=== PATIENT | male | born 1940 | race Caucasian/White ===

== ENCOUNTER 2016-06-10 16:59 | Emergency (ER) | payer MEDICARE ==
[~2016-06-10] VITALS: Ht 180.3 cm; Wt 115.8 kg
[~2016-06-10 16:59] MED LIST: ASCO500C15 PO; ASPI-557 PO; CALC-348 PO; CHOL10003 PO; HYDR-4246 PO; LOSA50TA52 PO; LUTE20CA3 PO; OSTEO-BIFLEX; VITA100C20 PO
--- OUTSIDE RECORDS SUMMARY | 2016-06-10 17:03 | XMS REPORT | Continuity of Care Document ---
Author Author [facility] Organization [facility] Address Unknown Phone Unavailable Allergies Medications Problems Procedures Code Description Performed By Performed On 13.59 EXTRACAP LENS EXTRAC [place] Felipe MD 03/26/2013 14.74 MECH VITRECTOMY [place] Felipe MD 03/26/2013 Results Test Result Range HEMOGLOBIN - 03/22/13 13:59 MEAN CELL VOLUME 89.1 fl 80.0-100.0 HEMOGLOBIN 15.9 gm/dL 14.0-18.0 METABOLIC PANEL, BASIC - 03/22/13 13:59 POTASSIUM 4.2 mmol/L 3.5-5.3 EST GFR (MDRD) > 60 mL/min > 59 ANION GAP 7 mmol/L 5-15 GLUCOSE 92 mg/dL 70-99 CALCIUM 9.1 mg/dL 8.5-10.1 BLOOD UREA NITROGEN 16 mg/dL 7-20 CREATININE 0.7 mg/dL 0.8-1.3 SODIUM 141 mmol/L 135-148 CHLORIDE 109 mmol/L 98-110 CARBON DIOXIDE 25 mmol/L 21-32 Encounters ACCT No. Visit Date/Time Discharge Status Pt. Type Provider Facility Loc./Unit Complaint [id number] 03/26/2013 05:23:00 2013 09:44:00 DIS Outpatient [place] Rios MD [facility] W.OPRA [id number] 03/22/2013 13:16:00 2013 13:16:00 DIS Outpatient [place] Rios MD [facility] DoriPOA
--- OUTSIDE RECORDS SUMMARY | 2016-06-10 17:04 | XMS REPORT | Referral Summary ---
Author Author [facility] Organization [facility] Address Unknown Phone Unavailable Encounter [facility] [id number] Date(s): 12/20/14 - 12/20/14 [facility] [address] [place] [address] GILES Schmidt [id number] Discharge Disposition: 01-Home or Self Care Attending Physician: Bartolome Gray MD Admitting Physician: Bartolome Gray MD Vital Signs No data available for this section Problem List No data available for this section Allergies, Adverse Reactions, Alerts No data available for this section Medications No data available for this section Results No data available for this section Immunizations No data available for this section Procedures No data available for this section Social History No data available for this section Assessment and Plan No data available for this section
--- OUTSIDE RECORDS SUMMARY | 2016-06-10 17:04 | XMS REPORT | Continuity of Care Document ---
Author Author [facility] Organization [facility] Address Unknown Phone Unavailable Support Name Relationship Address Phone JUAN WIN MD Caregiver [address] [facility] [address] DARNELL GARCÍA MD Caregiver [address] [facility] [place] [phone] NOMI GOODSON Next Of Kin [address] [place] [address] * Insurance Providers Payer Name Policy Number Subscriber Name Relationship Medicareadvantra Ppo [id number] Rodney Goodson 17 Self Advance Directives Directive Response Recorded Date/Time Advanced Directives Type None 05/31/14 9:30am Problems Medical Problems Problem Onset Date Status TIA (transient ischemic attack) Unknown Active TIA (transient ischemic attack) Unknown Active Medications Medication Dose Route Sig Days/Qty Instructions Order Date Discontinued Date Status Esomeprazole Mag Trihydrate 08/19/08 07/01/10 Discontinued Ascorbic Acid 500 Mg PO DAILY 07/01/10 Active Calcium/Magnesium/Zinc 1 Tab PO DAILY 07/01/10 Active Lutein 20 Mg PO DAILY 07/01/10 Active [Osteo-Biflex] 1 DAILY 07/01/10 Active Vitamin E 100 Unit PO DAILY 07/01/10 Active Cholecalciferol 1,000 Unit PO DAILY 07/01/10 Active Losartan Potassium 50 Mg PO DAILY 05/31/14 Active Aspirin 325 Mg PO 05/31/14 Active Social History Social History Problem Response Recorded Date/Time Hx Substance Use No 05/31/2014 9:44am Hx Alcohol Use No 05/31/2014 9:44am Query Response Start Date Stop Date Smoking Status Former smoker Hospital Discharge Instructions No hospital discharge instructions. Plan of Care No plan of care. Functional Status Query Response Date Recorded Physical Hygiene Self May 31, 2014 9:44am Disabilities None May 31, 2014 9:44am Devices Used None May 31, 2014 9:44am Dressing Self May 31, 2014 9:44am Ambulation Self May 31, 2014 9:44am Diet Self May 31, 2014 9:44am Mental Status Alert Oriented May 31, 2014 11:48am Disabilities None May 31, 2014 9:44am Devices Used None May 31, 2014 9:44am Physical Hygiene Self May 31, 2014 9:44am Dressing Self May 31, 2014 9:44am Ambulation Self May 31, 2014 9:44am Diet Self May 31, 2014 9:44am Allergies, Adverse Reactions, Alerts Allergen Type Severity Reaction Status Last Updated Sulfa (Sulfonamide Antibiotics) Allergy Active 06/24/10 Immunizations Name Given Type Hx Influenza Vaccination Yes Historical Hx Pneumococcal Vaccination Yes Historical Hx Tetanus, Diptheria, Pertussis Y 2006 ? Historical Hx Influenza Vaccination Yes Historical Hx Tetanus, Diptheria, Pertussis Y 2005 ? Historical Vital Signs Acute Vital Signs Vital Response Date/Time Temperature (Fahrenheit) 97.0 deg F (96.8 - 99.1) Temperature (Calculated Celsius) 36.17184 degrees C (36.0 - 37.3) Pulse Rate (adult) 79 bpm (60 - 100) Respiratory Rate 16 breaths/min (10 - 20) O2 Sat by Pulse Oximetry 96 % (90 - 100) Blood Pressure 122/85 mm Hg Height 6 ft 0 in Weight 269 lb Body Mass Index 36.0 kg/m^2 Results Test Source Date Result Interp. Ref. Range Comments Activated Partial Thromboplast Time August 19, 2008 1:55pm 28.8 SEC N 25- 36 Alanine Aminotransferase (ALT/SGPT) August 19, 2008 1:55pm 21 U/L N 21-72 Albumin August 19, 2008 1:55pm 4.30 G/DL N 3.5-5.0 Albumin/Globulin Ratio August 19, 2008 1:55pm 1.5 RATIO N 1.1-2.2 Alkaline Phosphatase August 19, 2008 1:55pm 92 U/L N 38-126 Amylase Level August 19, 2008 1:55pm 58 U/L N 30-110 Anion Gap September 14, 2013 10:49am 10 MEQ/L N 5-15 Aspartate Amino Transf (AST/SGOT) August 19, 2008 1:55pm 26 U/L N 17-59 B-Type Natriuretic Peptide August 19, 2008 1:55pm 49 PG/ML N 15-100 BUN/Creatinine Ratio September 14, 2013 10:49am 31 RATIO H 6-26 Basophils # (Auto) September 14, 2013 10:49am 0.1 T/MM3 N 0-0.2 Basophils (%) (Auto) September 14, 2013 10:49am 0.9 % N 0-2 Blood Urea Nitrogen September 14, 2013 10:49am 22.0 MG/DL H 9-20 Calcium Level September 14, 2013 10:49am 9.0 MG/DL N 8.4-10.2 Calculated Osmolality September 14, 2013 10:49am 271 MOSM/KG N 261-280 Carbon Dioxide Level September 14, 2013 10:49am 24 MEQ/L N 22-30 Chloride Level September 14, 2013 10:49am 106 MEQ/L N 98-107 Conjugated Bilirubin August 19, 2008 1:55pm 0.00 MG/DL N 0.00-0.30 Creatinine September 14, 2013 10:49am 0.7 MG/DL L 0.8-1.5 D-Dimer September 14, 2013 10:49am 345 NG/ML H 0-230 <224 NG/ML=PRESUMPTIVE NEGATIVE FOR PE OR DVT>224 NG/ML=ADDITIONAL EVALUATION FOR PE OR DVT RECOMMENDED Eosinophils # (Auto) September 14, 2013 10:49am 0.2 T/MM3 N 0-0.5 Eosinophils (%) (Auto) September 14, 2013 10:49am 3.1 % N 0-4 Erythrocyte Sedimentation Rate August 19, 2008 1:55pm 5 MM/HR - Globulin August 19, 2008 1:55pm 2.8 G/DL N 2.4-3.6 Glucose Level September 14, 2013 10:49am 80 MG/DL N 75-110 Hematocrit September 14, 2013 10:49am 47.8 % N 41-53 Hemoglobin September 14, 2013 10:49am 15.8 GM/DL N 13.5-17.5 Lipase August 19, 2008 1:55pm 106 U/L N 23-300 Lymphocytes # (Auto) September 14, 2013 10:49am 1.2 T/MM3 N 1-4.8 Lymphocytes (%) (Auto) September 14, 2013 10:49am 16.5 % L 23-45 Mean Corpuscular Hemoglobin September 14, 2013 10:49am 29.5 UUG N 26-34 Mean Corpuscular Hemoglobin Concent September 14, 2013 10:49am 33.1 GM/DL N 31-37 Mean Corpuscular Volume September 14, 2013 10:49am 89.2 UM3 N 80-100 Mean Platelet Volume September 14, 2013 10:49am 10.2 UM3 N 9.4-12.4 Monocytes # (Auto) September 14, 2013 10:49am 0.9 T/MM3 H 0-0.8 Monocytes (%) (Auto) September 14, 2013 10:49am 11.8 % H 0-9.0 Neutrophils # (Auto) September 14, 2013 10:49am 5.0 T/MM3 N 1.8-7.7 Neutrophils (%) (Auto) September 14, 2013 10:49am 67.7 % H 33-66 Platelet Count September 14, 2013 10:49am 175 T/MM3 N 130-400 Potassium Level September 14, 2013 10:49am 4.2 MEQ/L N 3.6-5 Prothromb Time International Ratio August 19, 2008 1:55pm 0.95 N 0.79- 1.23 THERAPUTIC RANGE=2.00-3.00 FOR ANTI-THROMBOSIS THERAPUTIC RANGE=2.50- 3.50 FOR IMPLANTED VALVE RDW Standard Deviation September 14, 2013 10:49am 43.9 FL N 36.9-50.2 Red Blood Count September 14, 2013 10:49am 5.36 M/MM3 N 4.50-5.90 Sodium Level September 14, 2013 10:49am 140 MEQ/L N 134-144 Thyroid Stimulating Hormone (TSH) August 19, 2008 1:55pm 1.00 MIU/ML N 0.47-4.68 Thyroxine (T4) August 19, 2008 1:55pm 5.8 UG/DL N 5.5-11 Total Bilirubin August 19, 2008 1:55pm 0.42 MG/DL N 0.20-1.30 Total Protein August 19, 2008 1:55pm 7.1 G/DL N 6.3-8.2 Troponin I September 14, 2013 10:49am < 0.012 ng/ml 0-0.12 Unconjugated Bilirubin August 19, 2008 1:55pm 0.37 MG/DL N 0.00-1.10 Urine Bilirubin January 29, 2010 11:15am Negative - Urine Blood January 29, 2010 11:15am Negative - Urine Collection Type January 29, 2010 11:15am Voided - Urine Color January 29, 2010 11:15am Yellow - Urine Glucose (UA) January 29, 2010 11:15am Negative - Urine Ketones January 29, 2010 11:15am Negative - Urine Leukocyte Esterase January 29, 2010 11:15am Negative - Urine Nitrite January 29, 2010 11:15am Negative - Urine Protein January 29, 2010 11:15am Negative - Urine Specific [place] January 29, 2010 11:15am 1.015 - Urine Turbidity January 29, 2010 11:15am Clear - Urine Urobilinogen January 29, 2010 11:15am Normal EU/DL - Urine pH January 29, 2010 11:15am 5.0 - White Blood Count September 14, 2013 10:49am 7.4 T/MM3 N 4.5-11.0 Chemistry Specimen Hemolysis September 14, 2013 10:49am < 15 0-25 0-25: No Hemolysis.26-70: Slight Hemolysis - can falsely elevate K and Urine Protein. 71-285: Moderate Hemolysis - can falsely elevate K, Troponin I, CA 19-9, PTH, CSF GLucose, and Urine Protein, and can falsely decrease Phenytoin. 286-999: Gross Hemolysis - can falsely elevate K, Troponin I, CA 19-9, PTH, CSF Glucose, and Urine Protine, and can falsely decrease Phenytoin. Recommend specimen recollection. Lab Scanned Report September 14, 2013 11:43am LAB TEST FORM REQUEST [id number] - EKG August 19, 2008 1:39pm Complete - Turbidity September 14, 2013 10:49am < 20 0-20 Glomerular Filtration Rate Calc September 14, 2013 10:49am 110 - Immature Granulocyte # (Auto) September 14, 2013 10:49am 0.00 T/MM3 N 0.00- 0.03 Immature Granulocyte % (Auto) September 14, 2013 10:49am 0.0 % N 0.0-0.5 Icterus Index September 14, 2013 10:49am < 2 0-7 Urine Microscopic Not Indicated January 29, 2010 11:15am Not indicated - Name: RODNEY GOODSON Unit #: [id number] : 1940 Sex: M Loc / Svc: ED DOS: 05/31/14 Signed Report #: [id number] DIAGNOSTIC IMAGING REPORT TYPE OF EXAM: CT HEAD W/O CONTRAST Dictated By: DI COREA MD Indication: ITS.REASON: left arm numbness CT HEAD W/O CONTRAST: Comparison: None Technique: Axial CT images through the head were performed without contrast. FINDINGS: The ventricles are of normal size, shape, and contour for the patient's age. The brainstem, and cerebral hemispheres have a normal morphology and CT attenuation. There is a tiny focus of decreased attenuation within the left cerebellar hemisphere may be from chronic ischemic insult. There is no evidence of midline displacement. No hemorrhage, signs of acute territorial stroke, mass effect, mass lesions, or edema is evident. The visualized portions of the skull base, midface, and calvarium demonstrate no abnormality. There is mild mucosal thickening demonstrated in the bilateral maxillary sinuses and ethmoid air cells. The tympanic and mastoid cavities appear normal. IMPRESSION: No evidence for acute intracranial process or hemorrhage. . Procedures Procedure Status Date Provider(s) X-RAY EXAM OF PELVIS completed 03/27/14 Encounters Encounter Location Date/Time Departed Emergency Room [facility] 05/31/14 9:24am [facility] 03/27/14 11:10am Recent Diagnosis
--- OUTSIDE RECORDS SUMMARY | 2016-06-10 17:04 | XMS REPORT | Referral Summary ---
Author Author [facility] Organization [facility] Address Unknown Phone Unavailable Encounter Date(s): 12/17/14 - 12/17/14 [facility] [address] [place] [address] GILES Schmidt [id number] Discharge Disposition: 01-Home or Self Care [...] No data available for this section Procedures Procedure Date Related Diagnosis Body Site Debridement, subcutaneous tissue (includes 12/17/14 epidermis and dermis, if performed); first 20 sq cm or less.. Social History No data available for this section Assessment and Plan No data available for this section
--- OUTSIDE RECORDS SUMMARY | 2016-06-10 17:04 | XMS REPORT | Referral Summary ---
Author Author [facility] Organization [facility] Address Unknown Phone Unavailable Encounter [facility] [id number] Date(s): 01/14/15 - 01/14/15 [facility] [address] [place] [address] GILES Schmidt [id number] Discharge Disposition: 01-Home or Self Care [...]
--- OUTSIDE RECORDS SUMMARY | 2016-06-10 17:04 | XMS REPORT | Referral Summary ---
Author Author [facility] Organization [facility] Address Unknown Phone Unavailable Encounter [facility] [id number] Date(s): 11/12/14 - 11/12/14 [facility] [address] [place] [address] GILES Schmidt [id number] Discharge Disposition: 01-Home or Self Care [...]
--- OUTSIDE RECORDS SUMMARY | 2016-06-10 17:04 | XMS REPORT | Referral Summary ---
Author Author [facility] Organization [facility] Address Unknown Phone Unavailable Encounter [facility] [id number] Date(s): 11/19/14 - 11/19/14 [facility] [address] [place] [address] GILES Schmidt [address] Discharge Disposition: 01-Home or Self Care Attending [...]
[2016-06-10] MEDS ORDERED: VITA400C25 PO (17:29)
[2016-06-10] MEDS ORDERED: LATA2.5D7 BOTH EYES (17:31)
[2016-06-10] MEDS ORDERED: TAMS0.4C47 PO (17:31)
[2016-06-10] MEDS ORDERED: IBUP-1724 PO (17:31)
[2016-06-10] MEDS ORDERED: TIMO5DRO7 BOTH EYES (17:31)
--- NOTE | 2016-06-10 17:31 | NUR ---
PROVIDER Lance MCMAHON GEAR CHANGER IN TO SEE PATIENT.
[2016-06-10] MEDS ORDERED: G.I. COCKTAIL 30ml PO ONE (17:45)
[2016-06-10 17:48] VITALS: Ht 180.3 cm; Wt 115.8 kg
--- NOTE | 2016-06-10 17:48 | NUR ---
XRAY PORTABLE BEING DONE.
--- OUTSIDE RECORDS SUMMARY | 2016-06-10 17:50 | XMS REPORT | Continuity of Care Document ---
Author Author [facility] Organization [facility] Address Unknown Phone Unavailable Allergies Medications Problems [...] Status Pt. Type Provider Facility Loc./Unit Complaint [id number] 03/26/2013 05:23:00 2013 09:44:00 DIS Outpatient Dayton Rios MD [facility] W.OPRA [id number] 03/22/2013 13:16:00 2013 13:16:00 DIS Outpatient Dayton Rios MD [facility] DoriPOA
--- OUTSIDE RECORDS SUMMARY | 2016-06-10 17:51 | XMS REPORT | Continuity of Care Document ---
Author Author [facility] Organization [facility] Address Unknown Phone Unavailable Support Name Relationship Address Phone JUAN WIN MD Caregiver [address] [place] [address] DARNELL GARCÍA MD Caregiver [address] [place] [phone] NOMI GOODSON Next Of Kin [address] [place] [address] * Insurance Providers Payer Name Policy Number Subscriber Name Relationship Medicareadvantra Ppo [id number] Rodney Goodson 17 Self Advance Directives Directive [...] F (96.8 - 99.1) Temperature (Calculated Celsius) 36.39241 degrees C (36.0 - 37.3) Pulse Rate [...] 29, 2010 11:15am Negative - Urine Specific [place] January 29, 2010 11:15am 1.015 - Urine [...] 14, 2013 11:43am LAB TEST FORM REQUEST [id number] - EKG August 19, 2008 1:39pm Complete [...] indicated - Name: RODNEY GOODSON Unit #: [id number] : 1940 Sex: M Loc / Svc: ED DOS: 05/31/14 Signed Report #: [id number] DIAGNOSTIC IMAGING REPORT TYPE OF EXAM: CT [...] Encounters Encounter Location Date/Time Departed Emergency Room [facility] 05/31/14 9:24am [facility] 03/27/14 11:10am Recent Diagnosis
[2016-06-10 17:52] LABS: BASOPHILS # (AUTO) 0.1 T/MM3 (0-0.2); BASOPHILS % (AUTO) 0.7 % (0-2); EOSINOPHILS # (AUTO) 0.1 T/MM3 (0-0.5); EOSINOPHILS % (AUTO) 1.8 % (0-4); HCT - HEMATOCRIT 46.3 % (41-53); HGB - HEMOGLOBIN 15.2 GM/DL (13.5-17.5); IMMATURE GRANULOCYTE # (AUTO) 0.01 T/MM3 (0.00-0.03); IMMATURE GRANULOCYTE % (AUTO) 0.1 % (0.0-0.5); LYMPHOCYTES % (AUTO) 14.4 % (23-45); MEAN CORPUSCULAR HGB 30.2 UUG (26-34); MEAN CORPUSCULAR HGB CONC(MCHC 32.8 GM/DL (31-37); MONOCYTES # (AUTO) 0.6 T/MM3 (0-0.8); MONOCYTES % (AUTO) 8.8 % (0-9.0); NEUTROPHILS #(AUTO)-ABSOLUTE 5.3 T/MM3 (1.8-7.7); NEUTROPHILS % (AUTO) 74.2 % (33-66); RED BLOOD COUNT 5.03 M/MM3 (4.50-5.90); WBC - WHITE BLOOD COUNT 7.1 T/MM3 (4.5-11.0)
[2016-06-10 18:00] LABS: ANION GAP 10 MEQ/L (5-15); BUN/CREATININE RATIO 24 RATIO (6-26); CALCIUM 9.4 MG/DL (8.4-10.2); CHLORIDE 107 MEQ/L (98-107); CO2 - CARBON DIOXIDE 24 MEQ/L (22-30); CREATININE 0.7 MG/DL (0.8-1.5); GLOMERULAR FILTRATION RATE 110; GLUCOSE 113 MG/DL (75-110); POTASSIUM 4.1 MEQ/L (3.6-5); SODIUM 141 MEQ/L (134-144)
[2016-06-10 18:34] LABS: ALBUMIN 3.9 G/DL (3.5-5.0); ALBUMIN/GLOBULIN RATIO 1.3 RATIO (1.1-2.2); ALKALINE PHOSPHATASE 88 U/L (38-126); ALT (SGPT) 36 U/L (21-72); AST (SGOT) 37 U/L (17-59); TOTAL PROTEIN 6.9 G/DL (6.3-8.2)
[2016-06-10 18:52] LABS: LIPASE 114 U/L (23-300)
--- NOTE | 2016-06-10 18:56 | NUR ---
PROVIDER Lance MCMAHON BANKING SPECIALIST IN TO SEE PATIENT.
[2016-06-10] MEDS ORDERED: HYDROMORPHONE 2mg/ml INJECTION IV ONE (19:00)
[2016-06-10] MEDS ORDERED: NORMAL SALINE 100 ML ONE (19:07)
[2016-06-10] MEDS ORDERED: SALINE FLUSH 10ml SYRINGE ONE (19:07)
[2016-06-10] MEDS ORDERED: IOHEXOL 300 MG/ML 100ml INJECTION ONE (19:07)
--- NOTE | 2016-06-10 19:08 | NUR ---
TO CT PER CART.
--- NOTE | 2016-06-10 19:09 | ERPDOC ---
Departure Disposition Decision Date: Jun 10, 2016 Disposition Decision Time: 20:12 Disposition: 01 DISCHARGED HOME, SELF-CARE Impression Impression Impression: Primary Impression: Epigastric abdominal pain Severity: Moderate Condition: Stable Seen By: Mid-level only Referrals: DEANNA CARTER MD (Family) Patient Instructions: Epigastric Pain (ED) Problems/Meds/Labs Reviewed?: Yes Medications reviewed and manag: Yes Additional Instructions: I do want you to start on some Omeprazole daily as prescribed. Your labs and CT today are normal. If this should return or if any further concerns then I do want you to follow up with your primary care provider in the clinic. Follow up care ordered?: Yes Mental Status: Alert, Oriented Scripts Omeprazole (Omeprazole) 20 Mg Tablet. 20 MG PO ACB, #20 TAB 0 Refills Take one tablet by mouth twice daily for 7 days, then one tablet by mouth daily. Prov: SLICK MCMAHON URVASHI 06/10/16 HPI - Abdominal Pain General Chief Complaint: Chest Pain Stated Complaint: BACK PAIN,CHEST DISCOMFORT Time Seen by Provider: 17:30 Source: patient, family () History/Exam Limitations: no limitations HPI - Abdominal Pain Initial Comments He had onset of upper abdominal pain and upper back pain today around 1400. He has never had pain like this in the past. Has not taken anything for it and cannot really find anything that seems to affect it as far as position change. Has not had any nausea/vomiting, diarrhea, or fevers/chills. He did note the back pain started first and then the abdominal pain. Has not wanted to eat anything since it started which is unusual for him. Occurred At: home Onset: Gradual Duration: other (Since 2 pm) Quality: sharpness Location: RUQ, LUQ, epigastric, other (upper back) Activities at Onset: none Associated Symptoms: back pain (upper back), DENIES: chest pain, diaphoresis, fatigue, fever/chills, headache, heartburn, nausea/vomiting, rash, shortness of breath, swelling/mass in abdomen, syncope, weakness Hx of Similar Symptoms: No Allergies: Coded Allergies: Sulfa (Sulfonamide Antibiotics) (Verified Allergy, Unknown, 08/19/14) TOPICAL OINTMENTS Past History Past Medical History Metabolic: hypertension Integumentary: psoriasis Surgical History General: hernia, other Joint: other Family History Family PMH: FOUND: [place], cancer, diabetes Vaccines Hx Influenza Vaccination: Yes (01/01) Hx Pneumococcal Vaccination: Yes Hx Tetanus, Diptheria, Pertuss: Yes (08/19/14) Social History Smoking Status: Never smoker Substance Use Type: does not use Alcohol Intake: none Sexuality: female partner Review of Systems Constitutional Constitutional: DENIES: chills, dizziness, fatigue, fever, weakness Cardiovascular Cardiac: DENIES: chest pain, orthopnea Rhythm/Rate: DENIES: irregular beat, palpitations Pulmonary Respiratory: DENIES: cough, dyspnea, sputum, tachypnea GI Upper Abdomen: pain, DENIES: nausea, vomiting Lower Abdomen: DENIES: constipation, diarrhea, pain General: DENIES: dysuria, frequency, urgency Integumentary Skin: DENIES: rash Neurological General: DENIES: headache, numbness, tingling, weakness Physical Exam General General Nourishment: well nourished, well developed, appears stated age, no acute distress, adult General Body Habitus: well groomed Vitals and Pain First Documented Vital Signs Date Time Temp Pulse Resp B/P Pulse Ox O2 Delivery O2 Flow Rate FiO2 06/10/16 17:48 97.7 79 18 137/83 95 Room Air Weight: Kilograms: 115.800 Height (feet): 5 Height (inches): 11.00 Triage Pain Scale: RN VS reviewed by Provider: Yes Normal Exams: Neck: Full range of motion, without adenopathy, JVD, bruits or thyromegaly Chest/Resp: Clear all morales, with good airflow, and symmetry bilaterally CV: Regular rate and rhythm, without murmur or gallop, Pulses 2+ all extremities, capillary refill, <2 seconds all ext., no pedal edema noted Abdomen: Bowel sounds positive, non-distended, no hepatosplenomegaly, masses or bruits noted Lymphatic: No lymphadenopathy, or lymphedema noted Integumentary: No rashes, hives, or bruising noted Neurologic: Patient is alert, and oriented Psychiatric: Patient exhibits, appropriate attention, emotion and affect Abdomen Inspection: NOT FOUND: distention Palpation: FOUND: soft, tender (Moderate TTP in the epigastric region and RUQ and LUQ as well.), voluntary guarding, NOT FOUND: involuntary guarding, rebound Differential Diagnoses Considering: Aortic Dissection, Biliary Colic, Bowel Obstruction, Cholecystitis , Constipation, Diverticulitis, Hepatitis, Hernia Progress Results/Orders Orders Procedure Category Date Status Time EKG EKG 06/10/16 Taken Chest 1 View RAD 06/10/16 Taken Cbc W/Auto LAB 06/10/16 Complete Diff-Reflex Manual Bmp - Basic Metabolic LAB 06/10/16 Complete Panel Troponin I W LAB 06/10/16 Complete Hemolysis Index G.I. Cocktail PHA 06/10/16 Complete (/Maalox/Lidocaine 17:45 Hepatic Panel LAB 06/10/16 Complete Lipase LAB 06/10/[address] Abd/Pelvis CT 06/10/16 Logged W/Contrast Only 19:00 Hydromorphone PHA 06/10/16 Complete (Dilaudid) 19:00 Iohexol (Omnipaque) PHA 06/10/16 Complete 19:07 Normal Saline (Ns) PHA 06/10/16 Complete 19:07 Saline Flush (Iv PHA 06/10/16 Complete Flush) 19:07 Lab Results Laboratory Tests Test 06/10/16 17:45 White Blood Count 7.1T/MM3 Red Blood Count 5.03M/MM3 Hemoglobin 15.2GM/DL Hematocrit 46.3% Mean Corpuscular Volume 92.0UM3 Mean Corpuscular Hemoglobin 30.2UUG Mean Corpuscular Hemoglobin Concent 32.8GM/DL RDW Standard Deviation 44.5FL Platelet Count 186T/MM3 Mean Platelet Volume 10.0UM3 Immature Granulocyte % (Auto) 0.1% Neutrophils (%) (Auto) 74.2% Lymphocytes (%) (Auto) 14.4% Monocytes (%) (Auto) 8.8% Eosinophils (%) (Auto) 1.8% Basophils (%) (Auto) 0.7% Absolute Immature Granulocyte (auto 0.01T/MM3 Absolute Neutrophils (auto) 5.3T/MM3 Absolute Lymphocytes (auto) 1.0T/MM3 Absolute Monocytes (auto) 0.6T/MM3 Absolute Eosinophils (auto) 0.1T/MM3 Absolute Basophils (auto) 0.1T/MM3 Turbidity < 20 Sodium Level 141MEQ/L Potassium Level 4.1MEQ/L Chloride Level 107MEQ/L Carbon Dioxide Level 24MEQ/L Anion Gap 10MEQ/L Blood Urea Nitrogen 17.0MG/DL Creatinine 0.7MG/DL Glomerular Filtration Rate Calc 110 BUN/Creatinine Ratio 24RATIO Glucose Level 113MG/DL Calculated Osmolality 274MOSM/KG Calcium Level 9.4MG/DL Total Bilirubin 0.70MG/DL Conjugated Bilirubin 0.00MG/DL Unconjugated Bilirubin 0.30MG/DL Icterus Index < 2 Aspartate Amino Transf (AST/SGOT) 37U/L Alanine Aminotransferase (ALT/SGPT) 36U/L Alkaline Phosphatase 88U/L Troponin I < 0.012ng/ml Total Protein 6.9G/DL Albumin 3.9G/DL Globulin 3.0G/DL Albumin/Globulin Ratio 1.3RATIO Lipase 114U/L Chemistry Specimen Hemolysis < 15 Medications Current ED Medications Pharmacy Profile Note (/Maalox/ Lidocaine Soln) 30 ml O ONCE PO Last administered on 06/10/16 17:44; Start 06/10/16 at 17:45; Stop 06/10/16 at 17:46 ; Status DC Hydromorphone HCl (Dilaudid) 0.5 mg O ONCE IV Last administered on 06/10/16 19:05; Start 06/10/16 at 19:00; Stop 06/10/16 at 19:01; Status DC Iohexol 1 bottle 1 bottle STK-MED ONCE .ROUTE ; Start 06/10/16 at 19:07; Stop at 19:08; Status DC Sodium Chloride (NS) 100 ml @ As Directed STK-MED ONCE .ROUTE ; Start 06/10/16 at 19:07; Stop 06/10/16 at 19:08; Status DC Sodium Chloride (Iv Flush) 10 ml STK-MED ONCE .ROUTE ; Start 06/10/16 at 19:07; Stop 06/10/16 at 19:08; Status DC Progress Progress CBC, CMP, and lipase today are normal. Troponin is negative as well. Chest xray is normal. He does continue to rate his abdominal pain as 7/10 however and does appear uncomfortable. I am going to go ahead and get a CT today of abd/pelvis. CT is normal. Pain is improved. Will go ahead and let him go home today. Will have him follow up with his PCP if pain continues. Will also have him start on some Omeprazole today as well. CT CT : Reason for Exam: epigastric abdominal pain CT: Abd/Pelvis IV contrast Interpretation: Normal SLICK MCMAHON APRN Jun 10, 2016 19:09
--- NOTE | 2016-06-10 19:22 | NUR ---
BACK FROM CT
[2016-06-10] MEDS ORDERED: OMEP-122 PO (20:14)
[2016-06-10 20:22] VITALS: BP 114/70; PULSE 80; RESP 18; TEMP 97.7; O2SAT 92
--- NOTE | 2016-06-11 07:57 | DI ---
Indication: ITS.REASON: epigastric abdominal pain PROCEDURE: CT ABD/PELVIS W/CONTRAST ONLY: Encounter: Initial Comparison: CT abdomen dated August 12, 2005 Technique: Axial CT images were performed through the abdomen and pelvis after the administration of intravenous contrast. Coronal and sagittal two-dimensional reformats. Automated Exposure Control and Iterative Reconstruction dose reducing techniques were utilized. Contrast: Omnipaque 300 100 mL Findings: Lung bases are grossly clear. The liver shows no enhancing lesion or bile duct dilatation. Gallbladder is mildly distended but otherwise unremarkable. The spleen, pancreas and adrenal glands are within normal limits. The kidneys show no acute findings. No abdominal or pelvic lymphadenopathy. Bladder is normal. Prostate is mildly enlarged. No free fluid or bowel obstruction. Minimal sigmoid diverticulosis without diverticulitis. Appendix is normal. 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 Impression: No acute disease process seen. There is a preliminary report by [facility] [employer] [facility] radiologic. .
--- NOTE | 2016-06-11 07:58 | DI ---
Indication: ITS.REASON: chest pain PROCEDURE: CHEST 1 VIEW: Encounter: Initial Comparison: September 14, 2013 Findings: The lungs are stable in appearance without new focal airspace consolidation. There is no pleural effusion or pneumothorax. The heart size, pulmonary vascularity and mediastinal contours are unchanged. IMPRESSION: Stable appearance of the chest without acute cardiopulmonary disease. .
== END 2016-06-10 20:22 | disposition home or self-care (01) ==
LOC: ED 16:59
DX: R10.11 Right upper quadrant pain (principal); R10.12 Left upper quadrant pain; R10.13 Epigastric pain
CPT/HCPCS: 71010; 74177; 80048; 80076; 83690; 84484; 85025; 93005; 96374; 99284; J1170; J7050; J7999; Q9967